=== PATIENT | female | born 1940 | race Caucasian/White ===

== ENCOUNTER 2019-08-22 21:10 | Inpatient (IN) ==
[2019-08-22] MEDS ORDERED: ONDANSETRON 4 MG/2 ML VIAL IV STA (21:40)
[2019-08-22] MEDS ORDERED: ALBUTEROL NEB SOLN 5 MG/ML 20 ML/BOTTLE RESP TX SCH (22:00)
[2019-08-22 22:33] LABS: Basophils % 0.2 % (0.0-0.8); Eosinophils # 0.3 10*3/uL (0.0-0.87); Eosinophils % 3.6 % (0.00-10.9); Hematocrit 28.4 VOL% (35.7-47.0); Hemoglobin 8.8 GM/DL (12.0-16.0); Immature Granulocytes % 0.6 %; Immature Granulocytes Absolute 0.05 #; Lymphocytes # 0.9 10*3/uL (1.4-4.0); Lymphocytes % 11.4 % (21.3-54.2); Mean Corpuscular Volume 97.3 FL (87-102); Mean Platelet Volume 10.1 FL (9.6-12.0); Monocytes % 10.6 % (1.7-12.7); Neutrophils % 73.6 % (38.7-73.9); Platelet Count 142 T/CUMM (130-400); Red Blood Count 2.92 MC/CUMM (3.8-5.5); Red Cell Distribution Width 16.6 % (9.3-17.3); White Blood Count 8.1 T/CUMM (4-12)
[2019-08-22] MEDS ORDERED: methylPREDNISolone SOD SUC 125 MG/2 ML VIAL IV STA (22:44)
[2019-08-22] MEDS ORDERED: MEROPENEM 1,000 MG in SODIUM CHLORIDE 0.9% 100 ML IV STA (22:44)
[2019-08-22] MEDS ORDERED: FUROSEMIDE 40 MG/4 ML VIAL IV STA (22:45)
[2019-08-22 22:47] LABS: INR 0.9
[2019-08-22 22:48] LABS: Alanine Aminotransferase 23 U/L (13-56); Albumin 3.2 G/DL (3.4-5.0); Alkaline Phosphatase 84 U/L (45-117); Aspartate Amino Transferase 27 U/L (0-37); Blood Urea Nitrogen 38 MG/DL (7-18); Calcium 8.9 MG/DL (8.5-10.1); Estimated Glom Filtration Rate 31 ML/MIN; Glucose 129 MG/DL (74-106); Osmolality,Calculated 296.8 MOS/KG (273-304); Total Protein 7.2 G/DL (6.4-8.3); Troponin I 0.017 NG/ML (0.00-0.045)
[2019-08-22] MEDS ORDERED: MEROPENEM 1,000 MG VIAL ONE (23:21)
[2019-08-22] MEDS ORDERED: SODIUM CHLORIDE 0.9% 100 ML IV ONE (23:31)
[2019-08-23] MEDS ORDERED: GLUCAGON 1 MG VIAL IM PRN ×2 (01:04→09:48)
[2019-08-23] MEDS ORDERED: DEXTROSE 50% 25 GM/50 ML VIAL IV PRN ×2 (01:04→09:48)
[2019-08-23] MEDS ORDERED: ALBUTEROL/IPRATROPIUM 3 ML NEB RESP TX PRN (01:10)
[2019-08-23] MEDS: PIPERACILLIN/TAZOBACTAM 3,375 MG in SODIUM CHLORIDE 0.9% 100 ML IV SCH ×3 (02:12→18:29)
[2019-08-23 03:23] LABS: Apearance,Urine Slightly Hazy (Clear); Bacteria,Urine Many /HPF (Few); Bilirubin,Urine Negative (Negative); Blood, Urine Negative (Negative); Glucose,Urine (UA) Negative (Negative); Ketones,Urine Negative (Negative); Mucus,Urine Occasional /LPF (Occasional); Nitrite,Urine Positive (Negative); Protein,Urine Negative; Squamous Epithelial Cell,Urine Occasional /HPF (0-10); Urine Color Yellow (Yellow); Urine Specific Gravity 1.012 (1.001-1.035); Urine Urobilinogen < 2.0 EU/DL (0.2-1.0); WBC,Urine <1 /HPF (0-6)
[2019-08-23 05:35] LABS: Calcium 8.3 MG/DL (8.5-10.1); Osmolality,Calculated 304.1 MOS/KG (273-304)
[2019-08-23 05:41] LABS: Basophils % 0.1 % (0.0-0.8); Eosinophils % 0.2 % (0.00-10.9); Hematocrit 27.6 VOL% (35.7-47.0); Hemoglobin 8.5 GM/DL (12.0-16.0); Immature Granulocytes % 0.6 %; Immature Granulocytes Absolute 0.05 #; Lymphocytes # 0.2 10*3/uL (1.4-4.0); Lymphocytes % 2.9 % (21.3-54.2); Mean Corpuscular HGB Conc 30.8 GM/DL (32-36); Mean Corpuscular Volume 99.6 FL (87-102); Mean Platelet Volume 10.4 FL (9.6-12.0); Monocytes % 1.2 % (1.7-12.7); Platelet Count 135 T/CUMM (130-400); Red Blood Count 2.77 MC/CUMM (3.8-5.5); Red Cell Distribution Width 16.4 % (9.3-17.3); White Blood Count 8.4 T/CUMM (4-12)
[2019-08-23] MEDS: INSULIN LISPRO 100 UNIT/ML SUBCUT SCH ×3 (05:54→18:30)
[2019-08-23 06:03] LABS: Lymphocytes 2 % (20-55); Segmented Neutrophils 97 % (50-85); Total Cells Counted 100
[2019-08-23 06:04] LABS: Anisocytosis Slight; Macrocytosis Slight; Platelet Estimate Normal
[2019-08-23 06:06] LABS: Hypochromasia Slight
[2019-08-23] MEDS: ASPIRIN EC 81 MG TABLET PO SCH (09:14)
[2019-08-23] MEDS: CILOSTAZOL 50 MG TABLET PO SCH ×2 (09:15→23:13)
[2019-08-23] MEDS: cloNIDine 0.1 MG TABLET PO SCH ×2 (09:15→23:13)
[2019-08-23] MEDS: amLODIPine 10 MG TABLET PO SCH (09:15)
[2019-08-23] MEDS: INSULIN GLARGINE 100 UNIT/ML SUBCUT SCH ×2 (09:15→09:50)
[2019-08-23] MEDS: SERTRALINE 50 MG TABLET PO SCH (09:15)
[2019-08-23] MEDS: traMADol 50 MG TABLET PO PRN (09:15)
[2019-08-23] MEDS: CETIRIZINE 10 MG TABLET PO SCH (09:15)
[2019-08-23] MEDS: GABAPENTIN 300 MG CAPSULE PO SCH ×2 (09:15→23:14)
[2019-08-23] MEDS: OXYBUTYNIN 5 MG TABLET PO SCH ×2 (09:15→23:14)
[2019-08-23] MEDS: ACETAMINOPHEN 325 MG TABLET PO PRN (13:54)
[2019-08-23] MEDS: ATORVASTATIN 10 MG TABLET PO SCH (23:13)
[2019-08-23] MEDS: DONEPEZIL 10 MG TABLET PO SCH (23:14)
[2019-08-24] MEDS: INSULIN LISPRO 100 UNIT/ML SUBCUT SCH ×4 (00:17→17:59)
[2019-08-24] MEDS: PIPERACILLIN/TAZOBACTAM 3,375 MG in SODIUM CHLORIDE 0.9% 100 ML IV SCH ×3 (01:47→08:50)
[2019-08-24 05:47] LABS: Basophils % 0.1 % (0.0-0.8); Eosinophils % 0.1 % (0.00-10.9); Hematocrit 25.3 VOL% (35.7-47.0); Hemoglobin 7.8 GM/DL (12.0-16.0); Immature Granulocytes % 0.6 %; Immature Granulocytes Absolute 0.05 #; Lymphocytes # 1.2 10*3/uL (1.4-4.0); Lymphocytes % 13.7 % (21.3-54.2); Mean Corpuscular HGB Conc 30.8 GM/DL (32-36); Mean Corpuscular Volume 98.8 FL (87-102); Mean Platelet Volume 10.7 FL (9.6-12.0); Monocytes % 11.3 % (1.7-12.7); Neutrophils % 74.2 % (38.7-73.9); Platelet Count 159 T/CUMM (130-400); Red Blood Count 2.56 MC/CUMM (3.8-5.5); Red Cell Distribution Width 16.6 % (9.3-17.3); White Blood Count 8.5 T/CUMM (4-12)
[2019-08-24 06:09] LABS: Calcium 8.1 MG/DL (8.5-10.1); Osmolality,Calculated 298.8 MOS/KG (273-304)
[2019-08-24 06:15] LABS: Vitamin B12 185 PG/ML (211-911)
[2019-08-24 06:59] LABS: Sedimentation Rate-Westergren 112 MM/HR (0-30)
[2019-08-24 07:41] LABS: Hemoglobin A1 (Alkaline) 97.2 % (96.5-98.5); Hemoglobin A2 (Alkaline) 2.8 % (1.5-3.5)
[2019-08-24] MEDS: amLODIPine 10 MG TABLET PO SCH (08:49)
[2019-08-24] MEDS: OXYBUTYNIN 5 MG TABLET PO SCH ×2 (08:49→20:40)
[2019-08-24] MEDS: CETIRIZINE 10 MG TABLET PO SCH (08:49)
[2019-08-24] MEDS: FOLIC ACID 1 MG TABLET PO SCH (08:49)
[2019-08-24] MEDS: cloNIDine 0.1 MG TABLET PO SCH ×2 (08:49→20:40)
[2019-08-24] MEDS: ASPIRIN EC 81 MG TABLET PO SCH (08:49)
[2019-08-24] MEDS: SERTRALINE 50 MG TABLET PO SCH (08:49)
[2019-08-24] MEDS: GABAPENTIN 300 MG CAPSULE PO SCH ×2 (08:49→20:40)
[2019-08-24] MEDS: INSULIN GLARGINE 100 UNIT/ML SUBCUT SCH (08:52)
[2019-08-24] MEDS: CILOSTAZOL 50 MG TABLET PO SCH ×2 (08:52→20:40)
[2019-08-24] MEDS ORDERED: CYANOCOBALAMIN 100 MCG TABLET PO SCH (09:00)
[2019-08-24] MEDS: SODIUM CHLORIDE 0.9% 1,000 ML IV SCH (09:10)
[2019-08-24] MEDS: traMADol 50 MG TABLET PO PRN (09:48)
[2019-08-24] MEDS: hydrALAZINE 20 MG/1 ML VIAL IV PRN (12:51)
[2019-08-24] MEDS: CYANOCOBALAMIN 1000 MCG/1 ML VIAL IM SCH (15:04)
[2019-08-24] MEDS: ATORVASTATIN 10 MG TABLET PO SCH (20:40)
[2019-08-24] MEDS: DONEPEZIL 10 MG TABLET PO SCH (20:40)
[2019-08-24] MEDS: cefTRIAXone 2,000 MG in SYRINGE 1 EACH IV SCH (21:01)
[2019-08-25] MEDS: INSULIN LISPRO 100 UNIT/ML SUBCUT SCH ×4 (00:30→18:48)
[2019-08-25 05:10] LABS: Basophils % 0.3 % (0.0-0.8); Eosinophils # 0.5 10*3/uL (0.0-0.87); Eosinophils % 5.7 % (0.00-10.9); Hematocrit 27.8 VOL% (35.7-47.0); Hemoglobin 8.6 GM/DL (12.0-16.0); Immature Granulocytes % 0.6 %; Immature Granulocytes Absolute 0.05 #; Lymphocytes # 1.4 10*3/uL (1.4-4.0); Lymphocytes % 15.8 % (21.3-54.2); Mean Corpuscular HGB Conc 30.9 GM/DL (32-36); Mean Corpuscular Volume 98.9 FL (87-102); Mean Platelet Volume 10.1 FL (9.6-12.0); Monocytes % 9.6 % (1.7-12.7); Platelet Count 174 T/CUMM (130-400); Red Blood Count 2.81 MC/CUMM (3.8-5.5); Red Cell Distribution Width 16.1 % (9.3-17.3); White Blood Count 8.6 T/CUMM (4-12)
[2019-08-25 05:37] LABS: % Iron Saturation 14.8 % (18-50)
[2019-08-25 05:40] LABS: Calcium 8.5 MG/DL (8.5-10.1); Osmolality,Calculated 305.4 MOS/KG (273-304)
[2019-08-25] MEDS: SODIUM CHLORIDE 0.9% 1,000 ML IV SCH (06:20)
[2019-08-25] MEDS: traMADol 50 MG TABLET PO PRN (08:17)
[2019-08-25] MEDS ORDERED: SODIUM CHLORIDE 0.45% 1,000 ML IV SCH (08:30)
[2019-08-25] MEDS ORDERED: CYANOCOBALAMIN 100 MCG TABLET PO SCH (09:00)
[2019-08-25] MEDS: amLODIPine 10 MG TABLET PO SCH (10:20)
[2019-08-25] MEDS: FERROUS SULFATE 325 MG TABLET PO SCH (10:20)
[2019-08-25] MEDS: GABAPENTIN 300 MG CAPSULE PO SCH ×2 (10:20→20:34)
[2019-08-25] MEDS: ASPIRIN EC 81 MG TABLET PO SCH (10:21)
[2019-08-25] MEDS: CETIRIZINE 10 MG TABLET PO SCH (10:21)
[2019-08-25] MEDS: OXYBUTYNIN 5 MG TABLET PO SCH ×2 (10:21→20:34)
[2019-08-25] MEDS: CILOSTAZOL 50 MG TABLET PO SCH ×2 (10:21→20:35)
[2019-08-25] MEDS: SERTRALINE 50 MG TABLET PO SCH (10:21)
[2019-08-25] MEDS: cloNIDine 0.1 MG TABLET PO SCH ×2 (10:21→20:33)
[2019-08-25] MEDS: CYANOCOBALAMIN 1000 MCG/1 ML VIAL IM SCH (10:21)
[2019-08-25] MEDS: FOLIC ACID 1 MG TABLET PO SCH (10:21)
[2019-08-25] MEDS: INSULIN GLARGINE 100 UNIT/ML SUBCUT SCH (10:22)
[2019-08-25] MEDS: hydrALAZINE 20 MG/1 ML VIAL IV PRN (11:29)
[2019-08-25] MEDS: MENTHOL/ZINC OXIDE OINT 71 GM JAR TOP SCH ×2 (12:43→20:33)
[2019-08-25] MEDS: POLYETHYLENE GLYCOL POWDER 17 GM PACK PO SCH ×2 (15:02→20:34)
[2019-08-25] MEDS: DOCUSATE SODIUM 100 MG CAPSULE PO SCH ×2 (15:02→20:34)
[2019-08-25] MEDS: carvediloL 12.5 MG TABLET PO SCH (16:33)
[2019-08-25] MEDS: ACETAMINOPHEN 325 MG TABLET PO PRN (16:33)
[2019-08-25] MEDS: DONEPEZIL 10 MG TABLET PO SCH (20:33)
[2019-08-25] MEDS: ATORVASTATIN 10 MG TABLET PO SCH (20:34)
[2019-08-25] MEDS: diphenhydrAMINE 25 MG/10 ML UDCUP PO PRN (20:36)
[2019-08-25] MEDS: cefTRIAXone 2,000 MG in SYRINGE 1 EACH IV SCH (21:48)
[2019-08-26] MEDS: INSULIN LISPRO 100 UNIT/ML SUBCUT SCH ×4 (00:40→18:37)
[2019-08-26] MEDS: traMADol 50 MG TABLET PO PRN (00:41)
[2019-08-26] MEDS: diphenhydrAMINE 25 MG/10 ML UDCUP PO PRN (00:50)
[2019-08-26 05:58] LABS: Basophils % 0.4 % (0.0-0.8); Eosinophils # 0.3 10*3/uL (0.0-0.87); Eosinophils % 4.3 % (0.00-10.9); Hematocrit 29.3 VOL% (35.7-47.0); Immature Granulocytes % 0.4 %; Immature Granulocytes Absolute 0.03 #; Lymphocytes # 0.7 10*3/uL (1.4-4.0); Lymphocytes % 9.8 % (21.3-54.2); Mean Corpuscular HGB Conc 30.7 GM/DL (32-36); Mean Corpuscular Volume 98.3 FL (87-102); Monocytes % 9.6 % (1.7-12.7); Neutrophils % 75.5 % (38.7-73.9); Platelet Count 181 T/CUMM (130-400); Red Blood Count 2.98 MC/CUMM (3.8-5.5); Red Cell Distribution Width 15.9 % (9.3-17.3); White Blood Count 7.4 T/CUMM (4-12)
[2019-08-26 06:24] LABS: Calcium 8.7 MG/DL (8.5-10.1); Osmolality,Calculated 295.1 MOS/KG (273-304)
[2019-08-26] MEDS: ASPIRIN EC 81 MG TABLET PO SCH (10:48)
[2019-08-26] MEDS: cloNIDine 0.1 MG TABLET PO SCH ×2 (10:48→22:06)
[2019-08-26] MEDS: GABAPENTIN 300 MG CAPSULE PO SCH ×2 (10:48→22:06)
[2019-08-26] MEDS: OXYBUTYNIN 5 MG TABLET PO SCH ×2 (10:48→22:07)
[2019-08-26] MEDS: CETIRIZINE 10 MG TABLET PO SCH (10:49)
[2019-08-26] MEDS: carvediloL 12.5 MG TABLET PO SCH (10:49)
[2019-08-26] MEDS: DOCUSATE SODIUM 100 MG CAPSULE PO SCH ×3 (10:49→22:14)
[2019-08-26] MEDS: FOLIC ACID 1 MG TABLET PO SCH (10:49)
[2019-08-26] MEDS: amLODIPine 10 MG TABLET PO SCH (10:49)
[2019-08-26] MEDS: CILOSTAZOL 50 MG TABLET PO SCH ×2 (10:49→22:05)
[2019-08-26] MEDS: SERTRALINE 50 MG TABLET PO SCH (10:49)
[2019-08-26] MEDS: POLYETHYLENE GLYCOL POWDER 17 GM PACK PO SCH ×3 (10:50→22:12)
[2019-08-26] MEDS: FERROUS SULFATE 325 MG TABLET PO SCH (10:50)
[2019-08-26] MEDS: CYANOCOBALAMIN 1000 MCG/1 ML VIAL IM SCH (10:50)
[2019-08-26] MEDS: MENTHOL/ZINC OXIDE OINT 71 GM JAR TOP SCH ×2 (10:50→22:08)
[2019-08-26 11:18] LABS: Eosinophils,Pleural Fluid 1 %; Lymphocytes,Pleural Fluid 68 %; Monocytes,Pleural Fluid 16 %; Neutrophils,Pleural Fluid 15 %
[2019-08-26 11:19] LABS: RBC,Pleural Fluid 280 T/CUMM
[2019-08-26] MEDS: INSULIN GLARGINE 100 UNIT/ML SUBCUT SCH (12:13)
[2019-08-26] MEDS: hydrALAZINE 20 MG/1 ML VIAL IV PRN (12:13)
[2019-08-26] MEDS: carvediloL 25 MG TABLET PO SCH (16:25)
[2019-08-26] MEDS: hydrALAZINE 25 MG TABLET PO SCH ×2 (16:25→22:07)
[2019-08-26] MEDS ORDERED: OLANZapine 2.5 MG TABLET PO SCH (21:00)
[2019-08-26] MEDS: cefTRIAXone 2,000 MG in SYRINGE 1 EACH IV SCH (22:04)
[2019-08-26] MEDS: ATORVASTATIN 10 MG TABLET PO SCH (22:07)
[2019-08-26] MEDS: DOXYCYCLINE HYCLATE 100 MG CAPSULE PO SCH (22:07)
[2019-08-26] MEDS: DONEPEZIL 10 MG TABLET PO SCH (22:07)
[2019-08-27] MEDS: INSULIN LISPRO 100 UNIT/ML SUBCUT SCH ×4 (00:50→18:17)
[2019-08-27] MEDS: MELATONIN 3 MG TABLET PO PRN ×2 (01:22→23:43)
[2019-08-27] MEDS: GABAPENTIN 300 MG CAPSULE PO SCH ×2 (09:22→22:05)
[2019-08-27] MEDS: SERTRALINE 50 MG TABLET PO SCH (09:22)
[2019-08-27] MEDS: FOLIC ACID 1 MG TABLET PO SCH (09:22)
[2019-08-27] MEDS: FERROUS SULFATE 325 MG TABLET PO SCH (09:22)
[2019-08-27] MEDS: DOXYCYCLINE HYCLATE 100 MG CAPSULE PO SCH ×2 (09:23→22:06)
[2019-08-27] MEDS: CETIRIZINE 10 MG TABLET PO SCH (09:23)
[2019-08-27] MEDS: cloNIDine 0.1 MG TABLET PO SCH ×2 (09:23→22:06)
[2019-08-27] MEDS: hydrALAZINE 25 MG TABLET PO SCH ×2 (09:23→16:19)
[2019-08-27] MEDS: ASPIRIN EC 81 MG TABLET PO SCH (09:23)
[2019-08-27] MEDS: amLODIPine 10 MG TABLET PO SCH (09:24)
[2019-08-27] MEDS: CILOSTAZOL 50 MG TABLET PO SCH (09:24)
[2019-08-27] MEDS: CYANOCOBALAMIN 1000 MCG/1 ML VIAL IM SCH (09:24)
[2019-08-27] MEDS: carvediloL 25 MG TABLET PO SCH ×2 (09:24→16:59)
[2019-08-27] MEDS: OXYBUTYNIN 5 MG TABLET PO SCH ×2 (09:24→22:05)
[2019-08-27] MEDS: DOCUSATE SODIUM 100 MG CAPSULE PO SCH ×2 (09:37→22:06)
[2019-08-27] MEDS: INSULIN GLARGINE 100 UNIT/ML SUBCUT SCH (09:37)
[2019-08-27] MEDS: POLYETHYLENE GLYCOL POWDER 17 GM PACK PO SCH ×2 (09:37→22:07)
[2019-08-27] MEDS: MENTHOL/ZINC OXIDE OINT 71 GM JAR TOP SCH ×2 (14:17→22:07)
[2019-08-27] MEDS ORDERED: QUEtiapine 25 MG TABLET PO SCH (21:00)
[2019-08-27] MEDS: cefTRIAXone 2,000 MG in SYRINGE 1 EACH IV SCH (22:00)
[2019-08-27] MEDS: ATORVASTATIN 10 MG TABLET PO SCH (22:05)
[2019-08-28] MEDS: INSULIN LISPRO 100 UNIT/ML SUBCUT SCH ×3 (00:22→12:12)
[2019-08-28 04:44] LABS: Basophils % 0.3 % (0.0-0.8); Eosinophils # 0.2 10*3/uL (0.0-0.87); Eosinophils % 3.6 % (0.00-10.9); Hematocrit 26.2 VOL% (35.7-47.0); Hemoglobin 8.1 GM/DL (12.0-16.0); Immature Granulocytes % 0.3 %; Immature Granulocytes Absolute 0.02 #; Lymphocytes # 1.2 10*3/uL (1.4-4.0); Mean Corpuscular HGB Conc 30.9 GM/DL (32-36); Mean Corpuscular Volume 98.1 FL (87-102); Mean Platelet Volume 10.5 FL (9.6-12.0); Monocytes % 12.1 % (1.7-12.7); Neutrophils % 63.7 % (38.7-73.9); Platelet Count 167 T/CUMM (130-400); Red Blood Count 2.67 MC/CUMM (3.8-5.5); Red Cell Distribution Width 15.7 % (9.3-17.3); White Blood Count 5.9 T/CUMM (4-12)
[2019-08-28 04:55] LABS: Calcium 8.6 MG/DL (8.5-10.1)
[2019-08-28] MEDS ORDERED: hydrALAZINE 25 MG TABLET PO SCH (09:00)
[2019-08-28] MEDS: CETIRIZINE 10 MG TABLET PO SCH (10:23)
[2019-08-28] MEDS: FOLIC ACID 1 MG TABLET PO SCH (10:23)
[2019-08-28] MEDS: ASPIRIN EC 81 MG TABLET PO SCH (10:23)
[2019-08-28] MEDS: POLYETHYLENE GLYCOL POWDER 17 GM PACK PO SCH (10:24)
[2019-08-28] MEDS: carvediloL 25 MG TABLET PO SCH (10:24)
[2019-08-28] MEDS: DOXYCYCLINE HYCLATE 100 MG CAPSULE PO SCH (10:24)
[2019-08-28] MEDS: GABAPENTIN 300 MG CAPSULE PO SCH (10:24)
[2019-08-28] MEDS: OXYBUTYNIN 5 MG TABLET PO SCH (10:24)
[2019-08-28] MEDS: FERROUS SULFATE 325 MG TABLET PO SCH (10:24)
[2019-08-28] MEDS: SERTRALINE 50 MG TABLET PO SCH (10:24)
[2019-08-28] MEDS: DOCUSATE SODIUM 100 MG CAPSULE PO SCH (10:24)
[2019-08-28] MEDS: amLODIPine 10 MG TABLET PO SCH (10:24)
[2019-08-28] MEDS: INSULIN GLARGINE 100 UNIT/ML SUBCUT SCH (10:25)
[2019-08-28] MEDS: CYANOCOBALAMIN 1000 MCG/1 ML VIAL IM SCH (11:33)
[2019-08-28] MEDS: MENTHOL/ZINC OXIDE OINT 71 GM JAR TOP SCH (11:33)
[2019-08-28] MEDS: cloNIDine 0.1 MG TABLET PO SCH (12:12)
[2019-08-28 12:30] VITALS: BP 185/63
[2019-08-28] MEDS ORDERED: DOCUSATE SODIUM 100 MG CAPSULE PO SCH (21:00)
[2019-08-29] MEDS ORDERED: CYANOCOBALAMIN 100 MCG TABLET PO SCH (09:00)
== END 2019-08-28 14:04 | DRG 193 ==
LOC: EDBD → EDUNIT# → N.ED 21:10 → N.EDINP 21:10 → SUATTDRO 08-23 01:03 → OBSVTOIN 08-23 01:03 → N.2E 08-23 02:20 → N.TELEN 08-23 02:30 → N.2E 08-23 02:31
PROVIDERS: ADMIT Internal Medicine; ATTEND Hospitalist
PROC: IRTHORA (2019-08-26 10:00)